=== PATIENT | male | born 1960 | race Caucasian/White ===

== ENCOUNTER 2016-06-07 22:54 | Emergency (ER) | payer BC ==
[~2016-06-07] VITALS: Ht 175.3 cm; Wt 85.3 kg
[~2016-06-07 22:54] MED LIST: AMLO-110 PO; BENA1TAB19 PO; CPR500 PO; CTP1 PO; HYDR-5688 PO
[2016-06-07 22:56] VITALS: TEMP 36.7; Ht 175.3 cm; Wt 85.3 kg
[2016-06-07 23:04] VITALS: O2SAT 97
[2016-06-07 23:24] LABS: BASO % 0.5 %; BASO ABS # 0.05 K/uL (0-0.2); COMPLETE YES; EOS % 2.2 %; HEMATOCRIT 36.3 % (42-52); IG% 0.1 %; LYMPH % 30.5 %; LYMPH ABS # 2.79 K/uL (1.2-3.4); MEAN CELL VOLUME 88.8 fL (80-100); MEAN CORPUSCULAR HEMOGLOBIN 31.5 pg (25-34); MEAN CORPUSCULAR HGB CONC 35.5 g/dl (32-36); MEAN PLATELET VOLUME 9.1 fL (7.4-10.4); MONO % 8.3 %; NEUT % 58.4 %; PLATELET COUNT 223 K/uL (130-400); RED BLOOD COUNT 4.09 M/uL (4.7-6.1); WHITE BLOOD COUNT 9.14 K/uL (4.8-10.8)
[2016-06-07] MEDS ORDERED: SODIUM CHLORIDE 0.9% 1000ML 1,000 ML IV STA (23:26)
--- NOTE | 2016-06-07 23:33 | DIAGNOSTIC IMAGING REPORT ---
SINGLE VIEW CHEST CLINICAL HISTORY: Atypical chest pain. Palpitations. FINDINGS: An AP, portable, upright chest radiograph is compared to study dated 06/17/2010. Correlation is made with chest CT dated 06/14/2010. The examination is mildly degraded by portable technique and patient rotation. The heart is top normal for projection. The mediastinal contour is within normal limits. The lungs and pleural spaces are clear. No pneumothorax is seen. The bony thorax is grossly intact. IMPRESSION: No active disease in the chest. Electronically signed by: Blayne Paul M.D. 06/07/2016 11:31 PM Dictated Date/Time: 06/07/2016 11:30 PM
[2016-06-07] MEDS ORDERED: HYDR25TA4 PO (23:34)
[2016-06-07] MEDS ORDERED: CLON0.1T12 PO (23:36)
--- NOTE | 2016-06-07 23:36 | EMERGENCY ROOM VISIT NOTE ---
History Report prepared by Ermelinda: Clarence Torres Under the Supervision of: Dr. Skip Leal M.D. First contact with patient: 23:03 Chief Complaint: RAPID HEART RATE Stated Complaint: DONT FEEL WELL, HEART BEATING FAST History of Present Illness The patient is a 56 year old male who presents to the Emergency Room with complaints of an episodes of rapid heart rate beginning last night. He notes he felt it last night, and that this morning it went away while at work. He notes it began to race again about 3 hours ago while he was doing house work. He notes he currently feels the rapid heart rate, and adds that he feels sweaty. The patient denies any dizziness, nausea, chest pain, or shortness of breath. He states he had an echocardiogram 6 years ago which he believes was normal. He notes having a history of hypertension and adds his father had a heart attack but denies any family history of blood clots. The patient has a history of necrotizing fasciitis of his leg. He denies any recent travel and has never smoked. He took his blood pressure medication today, and notes he takes 1 in the morning and 3 in the morning. The patient's notes he has stress at work. Source of History: patient Onset: last night Position: other (heart) Quality: other (rapid heart rate) Timing: other (episodes) Associated Symptoms: No SOB, No chest pain, No nausea Note: The patient notes feeling sweaty. The patient denies having any dizziness. Review of Systems See HPI for pertinent positives & negatives. A total of 10 systems reviewed and were otherwise negative. Past Medical & Surgical Medical Problems: (1) History of necrotising fasciitis Family History Diabetes mellitus Hypertension Social History Smoking Status: Never Smoker Marital Status: Housing Status: lives with family Current/Historical Medications Scheduled Amlodipine (Norvasc), 5 MG PO DAILY Aspirin (Aspirin Ec), 81 MG PO DAILY Benazepril (Lotensin), 40 MG PO DAILY Bioflavonoid Products (Violet-C), 1,000 MG PO DAILY Bcgqpfo-Lpkejgvex-Slxx (Calcium/Magnesium/Zinc), 1 TAB PO DAILY Clonidine Hcl (Catapres), 1 TAB PO HS Fish Oil ([place]-3), 2 CAP PO DAILY Hydrochlorothiazide (Hctz), 25 MG PO DAILY Probiotic Product (Probiotic), 1 CAP PO DAILY Scheduled PRN Fexofenadine Hcl (Helene Allergy), 180 MG PO DAILY PRN for ALLERGIC REACTION Allergies Coded Allergies: Cefazolin (Verified Allergy, Intermediate, ALLERGIC RXN, 08/06/10) Uncoded Allergies: IV DYE (Allergy, ., 08/06/10) Physical Exam Vital Signs Date Time Temp Pulse Resp B/P Pulse Ox O2 Delivery O2 Flow Rate FiO2 06/08/16 00:13 84 18 156/79 97 06/07/16 23:43 89 16 144/80 95 06/07/16 23:37 82 06/07/16 23:30 Room Air 06/07/16 23:04 Room Air 06/07/16 23:04 97 Room Air 06/07/16 22:56 36.7 104 18 190/84 97 Room Air Physical Exam GENERAL: Patient is a healthy-appearing well-nourished male HEAD: Normocephalic atraumatic EYES: Ocular movements intact pupils equal and react to light OROPHARYNX mucous membranes are moist no exudates present no erythema or edema present NECK: Supple no nuchal rigidity CHEST: Good equal expansion LUNGS: Clear and equal to auscultation CARDIAC: Normal S1 and S2 ABDOMEN: Soft nontender no guarding BACK: No CVA tenderness EXTREMITIES: No pain upon palpation normal muscle strength in all groups no clubbing cyanosis or edema NEURO: Patient is following commands is answering questions appropriately. Alert and oriented x3 Cranial Nerves 2-12 grossly intact Medical Decision & Procedures ER Provider Diagnostic Interpretation: X-ray results as stated below per interpretation by me and the radiologist: SINGLE VIEW CHEST FINDINGS: An AP, portable, upright chest radiograph is compared to study dated 06/17/2010. Correlation is made with chest CT dated 06/14/2010. The examination is mildly degraded by portable technique and patient rotation. The heart is top normal for projection. The mediastinal contour is within normal limits. The lungs and pleural spaces are clear. No pneumothorax is seen. The bony thorax is grossly intact. IMPRESSION: No active disease in the chest. Electronically signed by: Blayne Paul M.D. 06/07/2016 11:31 PM Dictated Date/Time: 06/07/2016 11:30 PM Laboratory Results 06/07/16 23:05 Red Blood Count 4.09, Mean Corpuscular Volume 88.8, Mean Corpuscular Hemoglobin 31.5, Mean Corpuscular Hemoglobin Concent 35.5, Mean Platelet Volume 9.1, Neutrophils (%) (Auto) 58.4, Lymphocytes (%) (Auto) 30.5, Monocytes (%) (Auto) 8.3, Eosinophils (%) (Auto) 2.2, Basophils (%) (Auto) 0.5, Neutrophils # (Auto) 5.33, Lymphocytes # (Auto) 2.79, Monocytes # (Auto) 0.76, Eosinophils # (Auto) 0.20, Basophils # (Auto) 0.05 06/07/16 23:05 Test 06/07/16 23:05 06/07/16 23:20 White Blood Count 9.14 K/uL (4.8-10.8) Red Blood Count 4.09 M/uL (4.7-6.1) Hemoglobin 12.9 g/dL (14.0-18.0) Hematocrit 36.3 % (42-52) Mean Corpuscular Volume 88.8 fL (80-100) Mean Corpuscular Hemoglobin 31.5 pg (25-34) Mean Corpuscular Hemoglobin Concent 35.5 g/dl (32-36) Platelet Count 223 K/uL (130-400) Mean Platelet Volume 9.1 fL (7.4-10.4) Neutrophils (%) (Auto) 58.4 % Lymphocytes (%) (Auto) 30.5 % Monocytes (%) (Auto) 8.3 % Eosinophils (%) (Auto) 2.2 % Basophils (%) (Auto) 0.5 % Neutrophils # (Auto) 5.33 K/uL (1.4-6.5) Lymphocytes # (Auto) 2.79 K/uL (1.2-3.4) Monocytes # (Auto) 0.76 K/uL (0.11-0.59) Eosinophils # (Auto) 0.20 K/uL (0-0.5) Basophils # (Auto) 0.05 K/uL (0-0.2) RDW Standard Deviation 38.5 fL (36.4-46.3) RDW Coefficient of Variation 11.9 % (11.5-14.5) Immature Granulocyte % (Auto) 0.1 % Immature Granulocyte # (Auto) 0.01 K/uL (0.00-0.02) Anion Gap 12.0 mmol/L (3-11) Est Creatinine Clear Calc Drug Dose 63.0 ml/min Estimated GFR () 64.2 Estimated GFR (Non- 55.4 BUN/Creatinine Ratio 22.1 (10-20) Calcium Level 8.9 mg/dl (8.5-10.1) Total Bilirubin 0.1 mg/dl (0.2-1) Direct Bilirubin < 0.1 mg/dl (0-0.2) Aspartate Amino Transf (AST/SGOT) 23 U/L (15-37) Alanine Aminotransferase (ALT/SGPT) 36 U/L (12-78) Alkaline Phosphatase 64 U/L (45-117) Total Creatine Kinase 345 U/L (39-308) Creatine Kinase MB 3.1 ng/ml (0.5-3.6) Creatine Kinase MB Ratio 0.9 (0-3.0) Troponin I < 0.015 ng/ml (0-0.045) Total Protein 7.8 gm/dl (6.4-8.2) Albumin 4.1 gm/dl (3.4-5.0) Lipase 108 U/L (73-393) Labs reviewed by ED physician. Medications Administered Medications (Trade) Dose Ordered Sig/Gladis Route Start Time Stop Time Status Last Admin Dose Admin Sodium Chloride (Nss 1000ml) 1,000 ml @ 999 mls/hr Q1H1M STAT IV 06/07/16 23:26 06/08/16 00:26 DC 06/07/16 23:43 999 MLS/HR ECG Indication: tachycardia Rate (beats per minute): 97 Rhythm: normal sinus Findings: no acute ischemic change, no ectopy ED Course 2319: Past medical records reviewed. The patient was evaluated in room C10. A complete history and physical examination was performed. 2326: Ordered NSS 1,000 ml @ 999 mls/hr IV. 0000: Upon reexamination the patient is hemodynamically stable. I discussed results and treatment plan with the patient. He verbalizes agreement and understanding. The patient is ready for discharge. Medical Decision This is a 56-year-old male who presents emergency department complaining of palpitations. The patient's heart rate is normal upon arrival to emergency department. An IV was established, the patient given normal saline bolus. The patient does some have some evidence of dehydration and his laboratory work. In addition his CK level is also elevated. I did discuss this with the patient reports he has been moving heavy furniture over the past day. In addition the patient's blood sugar is also elevated. He was given a bolus of fluid however stressed the need for follow-up with the patient's primary care physician. I also stressed that the patient follow-up for the patient's hypertension. Patient and are in agreement with the treatment plan. Impression Primary Impression: Hypertension Additional Impressions: Palpitations Dehydration Hyperglycemia Scribe Attestation The scribe's documentation has been prepared under my direction and personally reviewed by me in its entirety. I confirm that the note above accurately reflects all work, treatment, procedures, and medical decision making performed by me. Departure Information Dispostion Home / Self-Care Referrals Mateusz Patricia M.D. (PCP) Patient Instructions Dehydration, ED Palpitations, Hyperglycemia, Hypertension Control, Hypertension [place], [facility] Additional Instructions Increase fluids next 48 hours Need follow up with Dr Alcantara's office on Friday You have been examined and treated today on an emergency basis only. This is not a substitute for, or an effort to provide, complete comprehensive medical care. It is impossible to recognize and treat all injuries or illnesses in a single emergency department visit. It is therefore important that you follow up closely with Dr Patricia. Call as soon as possible for an appointment. Thank you for your time and consideration. I look forward to speaking with you again soon. Please don't hesitate to call us if you have any questions. Problem Qualifiers Primary Impression: Hypertension Hypertension type: unspecified secondary hypertension Qualified Codes: I15.9 - Secondary hypertension, unspecified
[2016-06-07] MEDS ORDERED: FEXO1TAB49 PO (23:37)
[2016-06-07] MEDS ORDERED: ASPI81TA28 PO (23:37)
[2016-06-07] MEDS ORDERED: BIOF500T PO (23:38)
[2016-06-07] MEDS ORDERED: OMEG10007 PO (23:39)
[2016-06-07 23:42] LABS: ALT/SGPT 36 U/L (12-78); AST/SGOT 23 U/L (15-37); BLOOD UREA NITROGEN 31 mg/dl (7-18); BUN/CREATININE RATIO 22.1 (10-20); CALCIUM 8.9 mg/dl (8.5-10.1); CARBON DIOXIDE 24 mmol/L (21-32); CHLORIDE 104 mmol/L (98-107); GLUCOSE 202 mg/dl (70-99); POTASSIUM 3.6 mmol/L (3.5-5.1); SODIUM 140 mmol/L (136-145)
[2016-06-07] MEDS ORDERED: MISCCAP80 PO (23:42)
[2016-06-07] MEDS ORDERED: CALCTAB30 PO (23:43)
[2016-06-07 23:47] LABS: ALKALINE PHOSPHATASE 64 U/L (45-117); CKMB/CK RATIO 0.9 (0-3.0)
[2016-06-08 00:13] VITALS: BP 156/79; PULSE 84; O2SAT 97
[2016-06-08 06:47] LABS: ESTIMATED AVERAGE GLUCOSE 114 mg/dl; HA1C FLAG Normal (Normal)
== END 2016-06-08 00:15 | disposition home or self-care (01) ==
LOC: C.EDB 22:55 → C.EDC 06-08 00:15
DX: I10 Essential (primary) hypertension (principal); R00.2 Palpitations; E86.0 Dehydration; R73.9 Hyperglycemia, unspecified; Z79.82 Long term (current) use of aspirin; Z79.899 Other long term (current) drug therapy; Z88.8 Allergy status to other drugs, medicaments and biological substances; Z91.041 Radiographic dye allergy status; Z83.3 Family history of diabetes mellitus; Z82.49 Family history of ischemic heart disease and other diseases of the circulatory system